=== PATIENT | male | born 1955 | race Caucasian/White ===

== ENCOUNTER 2019-12-23 12:38 | Outpatient (CLI) | payer MEDICARE ==
[~2019-12-23 12:38] MED LIST: Iopamidol 370 76% 100 ML VIAL ONE
--- NOTE | 2019-12-23 13:45 | CT ---
CT chest with IV contrast HISTORY: Abnormal chest radiograph. Mass. FINDINGS: Centered at the posterior aspect of the right hilum is a lobular, somewhat irregular shaped and spiculated soft tissue density mass partially encompassing the lower lobe pulmonary arteries. It measures up to 5.7 cm x 4.6 cm greatest diameters on the axial images. Some narrowing of the lower lobe bronchi. No pleural fluid or pneumothorax. Small amount of pericardial fluid noted within the superior pericar dial reflection. Lymph node at the right posterior paratracheal level measures up to 1.6 cm. Smaller lymph nodes are scattered about the mediastinum. Calcification is apparent within the arterial structures, and especially the coronary arteries. Superiormost images show a large, lobulated low density heterogeneous mass of the right thyroid lobe measuring up to 4.4 cm x 2.9 cm greatest diameters. Some internal coarse calcification. IMPRESSION : Large right hilar mass. Please consider pulmonary evaluation and potential bronchoscopy. Borderline size right paratracheal lymph node. Large aggressive appearing mass of the right thyroid lobe. It does have a suspicious appearance that is not likely directly related to the right lung mass. Please consider ENT evaluation and potential cytologic sampling. Atherosclerosis.
== END 2019-12-23 12:39 | disposition home or self-care (01) ==
LOC: MADCT 12:38
PROVIDERS: ATTEND Student in an Organized Health Care Education/Training Program
DX: R59.0 Localized enlarged lymph nodes (principal); R91.8 Other nonspecific abnormal finding of lung field; I70.90 Unspecified atherosclerosis
CPT/HCPCS: 36415; 71260; 82565; Q9967

== ENCOUNTER 2020-08-23 15:47 | Emergency (ER) | payer MEDICARE | END 2020-08-23 16:35 | disposition home or self-care (01) | LOC: MADERS 15:47 | DX: B02.9 Zoster without complications (principal) | CPT/HCPCS: 99282 ==

== ENCOUNTER 2021-05-19 08:30 | Emergency (ER) | payer MEDICARE ==
[2021-05-19] MEDS ORDERED: Lidocaine 1% 20 ML MDV ONE (09:44)
[2021-05-19] MEDS ORDERED: cefTRIAXone\\ROCEPHIN 1 GM VIAL ONE (09:44)
== END 2021-05-19 10:05 | disposition home or self-care (01) ==
LOC: MADERS 08:30
DX: H66.92 Otitis media, unspecified, left ear (principal)
CPT/HCPCS: 96372; 99282; J0696

== ENCOUNTER 2021-05-24 15:21 | Emergency (ER) | payer MEDICARE | END 2021-05-24 16:57 | disposition home or self-care (01) | LOC: MADERS 15:21 | DX: H65.92 Unspecified nonsuppurative otitis media, left ear (principal); Z79.899 Other long term (current) drug therapy; Z79.84 Long term (current) use of oral hypoglycemic drugs | CPT/HCPCS: 99282 ==